=== PATIENT | male | born 1965 | race African-American/Black ===

== ENCOUNTER 2017-01-07 08:49 | Emergency (ER) | payer MEDICARE, MEDICAID ==
[~2017-01-07] VITALS: Ht 172.7 cm; Wt 73.0 kg
[~2017-01-07 08:49] MED LIST: ATEN-42 PO; CINA30 PO; FOS1G PO; SEVE800T8 PO
[2017-01-07] MEDS ORDERED: ONDANSETRON 4MG ODT PO ONE (09:45)
[2017-01-07] MEDS ORDERED: MORPHINE SULFATE 10 MG/ML CPJ IM ONE (09:45)
[2017-01-07 10:53] VITALS: BP 128/89
== END 2017-01-07 10:54 | disposition home or self-care (01) ==
LOC: ER 09:14
DX: M25.551 Pain in right hip (principal); G89.29 Other chronic pain; I12.0 Hypertensive chronic kidney disease with stage 5 chronic kidney disease or end stage renal disease; N18.6 End stage renal disease; Z99.2 Dependence on renal dialysis; M85.80 Other specified disorders of bone density and structure, unspecified site
CPT/HCPCS: 73502; 96372; 99284; J2270; Q0162

== ENCOUNTER → 2017-01-08 | Outpatient (CLI) | payer MEDICARE, MEDICAID | END | disposition home or self-care (01) | LOC: US 09:35 | PROVIDERS: ATTEND Internal Medicine Nephrology | DX: N25.81 Secondary hyperparathyroidism of renal origin (principal); N18.6 End stage renal disease | CPT/HCPCS: 76536; 78070; A9500 ==

== ENCOUNTER 2017-04-24 06:12 | Observation (INO) | payer MEDICARE, MEDICAID ==
[~2017-04-24] VITALS: Ht 177.8 cm; Wt 72.6 kg
[2017-04-24] MEDS ORDERED: SODIUM CHLORIDE 0.9% 500 ML IV ONE (07:50)
[2017-04-24] MEDS ORDERED: VASOPRESSIN 20 UNIT/ML 1ML ONE (08:51)
[2017-04-24] MEDS ORDERED: BUPIVACAINE HCL/PF 0.5% (5MG/ML) 10ML ONE (08:54)
[2017-04-24] MEDS ORDERED: SKIN ADHESIVE 0.7 GM EA TOP ONE (09:05)
[2017-04-24] MEDS ORDERED: DEXT 5%/0.45% NACL KCL 20MEQ/L 1,000 ML IV SCH (09:23)
[2017-04-24] MEDS ORDERED: ONDANSETRON HCL 4MG/2ML VIAL IV PRN ×2 (09:30→10:45)
[2017-04-24] MEDS ORDERED: HYDROCODONE/ACETAMINOPHEN 5/325MG TABLET PO PRN ×2 (09:30)
[2017-04-24] MEDS ORDERED: MORPHINE SULFATE 2 MG/ML CPJ (NOT FOR IM USE) IV PRN (09:30)
[2017-04-24] MEDS ORDERED: MORPHINE SULFATE 4 MG/ML CPJ (NOT FOR IM USE) IV PRN (09:30)
[2017-04-24] MEDS ORDERED: BUPIVACAINE HCL/EPINEPHRINE 0.5%/0.0005 30ML ONE (09:34)
[2017-04-24] MEDS ORDERED: ALBUTEROL 90MCG/PUFF 17GM INHALER INH ONE (09:48)
[2017-04-24] MEDS ORDERED: DOCU-138 PO (10:17)
[2017-04-24] MEDS ORDERED: IBUP-1509 PO (10:18)
[2017-04-24] MEDS ORDERED: ACET-2708 PO (10:19)
[2017-04-24] MEDS ORDERED: SODIUM CHLORIDE 0.9% 1,000 ML IV SCH (10:34)
[2017-04-24] MEDS ORDERED: METOPROLOL TARTRATE 5MG/5ML VIAL IV PRN (10:45)
[2017-04-24] MEDS ORDERED: HYDROMORPHONE HCL/PF 2MG/ML CPJ IV PRN (10:45)
[2017-04-24 13:07] LABS: CARBON DIOXIDE 24 mEq/L (21-32); CHLORIDE 99 mEq/L (98-107)
[2017-04-24] MEDS: CALCITRIOL 0.25MCG CAPSULE PO SCH (14:49)
[2017-04-24 15:40] VITALS: BP 114/74
[2017-04-24] MEDS ORDERED: METHADONE HCL 5MG TABLET PO PRN (16:15)
[2017-04-24] MEDS ORDERED: SODIUM CHLORIDE 0.45% 1,000 ML IV SCH (16:30)
[2017-04-24 17:00] VITALS: BP 114/74
[2017-04-24] MEDS: CALCIUM ACETATE 667MG CAPSULE PO SCH (17:09)
[2017-04-24] MEDS: SEVELAMER CARBONATE 800 MG TABLET PO SCH (17:15)
[2017-04-24] MEDS: LOSARTAN POTASSIUM 50 MG TABLET PO SCH ×2 (17:15→21:10)
[2017-04-24 20:00] VITALS: BP 114/78
[2017-04-24] MEDS: ATENOLOL 50 MG TABLET PO SCH (21:10)
[2017-04-24] MEDS: CALCIUM CARBONATE 500MG TABLET CHEW PO SCH (21:10)
[2017-04-24] MEDS: SODIUM CHLORIDE 0.9% INJ 3ML FLUSH IVF SCH (21:11)
[2017-04-25] VITALS: BP 105/68
[2017-04-25 04:00] VITALS: BP 94/58
[2017-04-25] MEDS: SEVELAMER CARBONATE 800 MG TABLET PO SCH ×3 (06:32→17:53)
[2017-04-25] MEDS: SODIUM CHLORIDE 0.9% INJ 3ML FLUSH IVF SCH ×2 (06:32→14:17)
[2017-04-25 08:00] VITALS: BP 94/52
[2017-04-25] MEDS: CALCITRIOL 0.25MCG CAPSULE PO SCH (08:08)
[2017-04-25] MEDS: CALCIUM ACETATE 667MG CAPSULE PO SCH ×3 (08:08→17:53)
[2017-04-25] MEDS: ATENOLOL 50 MG TABLET PO SCH (08:10)
[2017-04-25] MEDS: LOSARTAN POTASSIUM 50 MG TABLET PO SCH (08:10)
[2017-04-25] MEDS ORDERED: CALCIUM GLUCONATE 1000 MG in DEXTROSE 5% WATER 100 ML IV SCH (09:00)
[2017-04-25] MEDS: CALCIUM CARBONATE 500MG TABLET CHEW PO SCH ×2 (10:18→17:53)
[2017-04-25 12:00] VITALS: BP 96/55
[2017-04-25 16:00] VITALS: BP 95/62
[2017-04-25 17:47] VITALS: BP 95/62
== END 2017-04-25 18:35 | disposition home or self-care (01) ==
LOC: OR 06:12 → 6EST 06:13 → SUPCPDRO 15:12
PROVIDERS: ADMIT Internal Medicine; ATTEND Internal Medicine
DX: E21.0 Primary hyperparathyroidism (principal); I12.0 Hypertensive chronic kidney disease with stage 5 chronic kidney disease or end stage renal disease; N18.6 End stage renal disease; Z99.2 Dependence on renal dialysis
CPT/HCPCS: 36415; 60500; 80048; 80053; 82040; 88305; 88307; 88331; 96365; G0168; G0378; J0171; J0610; J2270; J2405; J7030; J7040; J3490; J7060